=== PATIENT | male | born 1975 | race Caucasian/White ===

== ENCOUNTER → 2016-10-07 | Outpatient (CLI) | payer OTHER ==
[~2016-10-07] MED LIST: ACETAMINOPHEN500 M3 PO; ACULAR10 ML OD; ALBUTEROL MININEB INH; ALBUTEROL0.63 MG/3 IH; ALBUTEROL0.83 MG/ML IH; ALBUTEROL17 GM INH; AMOXICILLIN PO; AUGMENTIN PO; AUGMENTIN875 M1 PO; AUGMENTIN875 MG DOB; AZITHROMYCIN250 MG PO; BACLOFEN10 MG PO; BENZONATATE PO; COMBIVENT INH14.7 G1 IH; COMBIVENT MININEB INH; COMBIVENT U/D3 M2 INH; DDAVP0.1 MG PO; DDAVP0.2 M1 PO; DESMOPRESSIN A0.1 M1 PO; DESMOPRESSIN A0.1 MG; DOXYCYCLINE HY100 M1 PO; DOXYCYCLINE PO; HYCODAN PO; IBUPROFEN800 MG PO; KEFLEX500 MG PO; LEVAQUIN PO; LEVAQUIN750 MG PO; MEDROL DOSEPAK4 MG DOB; MEDROL PO; MEDROL4 MG/DOSE- PO; METHADOSE40 M1 PO; NAPROSYN500 MG PO; NEURONTIN300 MG PO; NICOTINE TRANSD21 MG EXT; NO MEDICATIONS; PHENERGAN DM1 ML DOB; PHENERGAN25 MG/M1 PO; POLYTRIM EYE DR10 ML OD; PREDNISONE PO; PREDNISONE10 MG PO; PREDNISONE5 MG PO; PREDNISONE50 MG PO; PROAIR HFA8.5 GM IH; PROMETHAZINE D118 ML PO; PROVENTIL INH0.5 ML HHN; SUPRAX400 MG PO; SYMBICORT INH; TRAZODONE; TUDORZA PRESS400 MCG IH; TYLENOL325 M1 PO; VIBRAMYCIN100 M1 DOB; VIBRAMYCIN100 M1 PO; VICODIN 5/1 TAB 5/50 PO; VICODIN 5/500 T1 TAB PO; VICODIN ES 7.51 EAC1 PO; VOLTAREN75 MG PO; ZANTAC150 M1 PO; ZITHROMAX PO; [UNRECOGNIZED DRUG - OTHER] PO
[2016-10-07 17:21] LABS: HEMATOCRIT 48.1 % (38.0-50.0); HEMOGLOBIN 16.3 gm/dL (13.0-16.0); MEAN CORPUSCULAR HEMOGLOBIN 30.8 PG (28-34); MEAN CORPUSCULAR HGB CONC 33.8 g/dL (30-36); MEAN PLATELET VOLUME 7.6 FL (6.5-11.5); RED BLOOD COUNT 5.29 X10e (3.90-5.60); RED CELL DISTRIBUTION WIDTH 13.6 % (11.0-15.5); WHITE BLOOD COUNT 8.3 X10e3 (4.0-10.5)
[2016-10-12 14:25] LABS: TESTOSTERONE FREE (PNL) 74.3 pg/mL (35.0-155.0)
== END | disposition home or self-care (01) ==
LOC: SLAB 17:03
PROVIDERS: Internal Medicine
DX: E11.9 Type 2 diabetes mellitus without complications (principal); E29.1 Testicular hypofunction; E22.1 Hyperprolactinemia; E23.0 Hypopituitarism; R68.89 Other general symptoms and signs
CPT/HCPCS: 36415; 83002; 84146; 84402; 84403; 85027; G0103